=== PATIENT | female | born 1960 | race Caucasian/White ===

== ENCOUNTER 2024-01-05 02:55 | Emergency (ER) | payer MEDICARE, MEDICAID ==
[~2024-01-05] VITALS: Ht 162.6 cm; Wt 114.0 kg
[~2024-01-05 02:55] MED LIST: BENA40TA91 PO; BUPR450T MT; CALC-26 PO; CARV3.1242 PO; DOCU250C69 PO; FURO20TA4 PO; IBUP-2030 PO; LAMO100T65 PO; METF-414 PO; OXYB-52 PO; QUET300T20 PO; TOPI100T37 PO; VENL75CA56 PO; ZOLP10TA2 PO
[2024-01-05 03:01] VITALS: TEMP 99.9; O2SAT 97
[2024-01-05 03:57] VITALS: BP 128/41; PULSE 67; RESP 14
[2024-01-05] MEDS: KETOROLAC 30MG/ML VIAL IV STA (03:57)
[2024-01-05] MEDS: ONDANSETRON HCL 4MG/2ML INJ IV STA (03:58)
[2024-01-05 04:35] LABS: CHLORIDE 110 mEq/L (98-107); POTASSIUM 3.8 mEq/L (3.5-5.1); SODIUM 140 mEq/L (136-145)
[2024-01-05 04:36] LABS: CALCIUM 10.1 mg/dL (8.7-10.4); CARBON DIOXIDE 22 mEq/L (21-32)
[2024-01-05 04:41] LABS: CREATININE 0.9 mg/dL (0.6-1.0); GLUCOSE 118 mg/dL (70-105)
[2024-01-05 04:42] LABS: UREA NITROGEN BLOOD 9 mg/dL (9-23)
[2024-01-05 04:43] LABS: ALANINE AMINOTRANSFERASE 14 IU/L (10-49); ALBUMIN 4.8 g/dL (3.2-4.8); ASPARTATE AMINOTRANSFERASE 15 IU/L (<34); LACTIC ACID 2.6 mmol/L (0.4-2.0)
[2024-01-05 04:44] LABS: BILIRUBIN TOTAL 0.2 mg/dL (0.1-1.0); PROTEIN TOTAL 7.4 g/dL (6.0-8.3)
[2024-01-05 04:48] LABS: BASOPHILS % 0.4 % (0.0-2.0); EOSINOPHILS % 1.6 % (0.0-5.0); HEMATOCRIT. 41.1 % (36.0-48.0); HEMOGLOBIN. 13.2 g/dL (12.0-16.0); LYMPHOCYTES % 17.3 % (20.0-50.0); MEAN CORPUSCULAR HEMOGLOBIN 27.5 pg (28.0-32.0); MEAN CORPUSCULAR VOLUME 85.9 fL (81.0-99.0); MEAN PLATELET VOLUME 10.2 fl (7.4-10.4); MONOCYTES % 8.8 % (2.0-8.0); NEUTROPHILS % 71.9 % (40.0-76.0); PLATELET 247 x1000/uL (130-400); RED BLOOD CELL COUNT 4.78 mill/uL (4.2-5.4); RED CELL DISTRIBUTION WIDTH 15.1 % (11.6-14.6); WHITE BLOOD COUNT 8.1 x1000/uL (4.5-11.0)
[2024-01-05 04:50] LABS: BILIRUBIN DIRECT < 0.1 mg/dL (<=3.0)
[2024-01-05] MEDS ORDERED: NAP5EC MT (05:56)
== END 2024-01-05 08:12 | disposition home or self-care (01) ==
LOC: ER 03:04
DX: M79.10 Myalgia, unspecified site (principal); E11.9 Type 2 diabetes mellitus without complications; I10 Essential (primary) hypertension; Z88.8 Allergy status to other drugs, medicaments and biological substances
CPT/HCPCS: 99285; 70450; 96374; 71045; 96375; 80076; 80048; 83605; 85025; 87040; 36415; 74176; J1885; J2405